=== PATIENT | female | born 1945 | race Caucasian/White ===

== ENCOUNTER → 2021-02-22 | Outpatient (CLI) | payer MEDICARE ==
[2021-02-22 19:50] LABS: Alanine Aminotransfer (ALT/SGP 58 U/L (12-78); Albumin, Blood 3.6 g/dL (3.4-5.0); Alk Phos 107 U/L (50-136); Anion Gap 8 mmol/L (6-16); Aspartate Aminotrans (AST/SGOT 25 U/L (12-37); Bilirubin, Total 0.7 mg/dL (0.1-1.0); Blood Urea Nitrogen 16 mg/dL (8-24); Bun/Creatinine Ratio 26.8 (12.0-20.0); CO2, Blood 23 mmol/L (21-32); Calcium, Blood 9.6 mg/dL (8.5-10.1); Chloride, Blood 108 mmol/L (98-108); Globulin, Blood 3.7 g/dL (2.2-4.0); Glomerular Filtration Rate >60 (60-); Glucose, Blood 184 mg/dL (70-99); Sodium, Blood 139 mmol/L (136-145); Total Protein, Blood 7.3 g/dL (6.4-8.2)
== END | disposition home or self-care (01) ==
LOC: LAB 15:16 → LAB SHORT 15:16
PROVIDERS: Family Medicine
DX: E11.9 Type 2 diabetes mellitus without complications (principal)
CPT/HCPCS: 80053; 83036

== ENCOUNTER 2021-11-25 08:06 | Day surgery (SDC) | payer MEDICARE ==
[~2021-11-25] VITALS: Ht 170.2 cm; Wt 84.5 kg
[~2021-11-25 08:06] MED LIST: ATOR20 PO; GLIM2 PO; GLUCOPHAGE1000 M1 PO
--- NOTE | 2021-11-25 08:58 | NUR ---
11/25/21 0858 Jacqueline Denis @ [phone], XIOMARA @ [phone]
== END 2021-11-25 10:11 | disposition home or self-care (01) ==
LOC: ORSCSDS 08:06
PROVIDERS: Ophthalmology
PROC: 08RK3JZ Replacement of Left Lens with Synthetic Substitute, Percutaneous Approach (ICD-10-PCS; principal; 2021-11-25 09:30)
DX: H25.12 Age-related nuclear cataract, left eye (principal); E11.9 Type 2 diabetes mellitus without complications; Z79.84 Long term (current) use of oral hypoglycemic drugs; Z79.899 Other long term (current) drug therapy
CPT/HCPCS: 82947; J2001; J2250; J3010; J3301; J7040; V2632

== ENCOUNTER → 2021-12-13 | Outpatient (CLI) | payer MEDICARE | LOC: LAB 11:44 → LAB SHORT 11:44 | DX: N39.0 Urinary tract infection, site not specified (principal) | CPT/HCPCS: 87077; 87086; 87186 ==

== ENCOUNTER 2022-05-05 15:29 | Inpatient (IN) | payer MEDICARE ==
[~2022-05-05] VITALS: Ht 162.6 cm; Wt 80.8 kg
[2022-05-05 16:22] LABS: BASOPHILS ABSOLUTE AUTO 0.05 K/mm3 (0.00-0.23); BASOPHILS PERCENT AUTO 0 % (0-2); EOSINOPHILS ABSOLUTE AUTO 0.11 K/mm3 (0.00-0.68); EOSINOPHILS PERCENT AUTO 1 % (0-6); Hematocrit 40.1 % (33.0-51.0); Hemoglobin 13.3 g/dL (11.5-16.0); IMMATURE GRAN ABSOLUTE AUTO 0.07 K/mm3 (0.00-0.10); IMMATURE GRAN PERCENT AUTO 1 % (0-1); LYMPHOCYTES ABSOLUTE AUTO 1.77 K/mm3 (0.84-5.20); LYMPHOCYTES PERCENT AUTO 16 % (21-46); MONOCYTES ABSOLUTE AUTO 0.91 K/mm3 (0.16-1.47); MONOCYTES PERCENT AUTO 8 % (4-13); Mean Corpuscular HGB 28.6 pg (26.0-34.0); Mean Corpuscular HGB Conc 33.2 g/dL (31.5-36.5); Mean Corpuscular Volume 86 fL (80-100); Mean Platelet Volume 11.3 fL (9.1-12.4); NEUTROPHILS ABSOLUTE AUTO 8.46 K/mm3 (1.96-9.15); NEUTROPHILS PERCENT AUTO 74 % (41-73); Platelet Count 311 K/mm3 (150-400); RDW Coefficient Variation 13.9 % (11.7-14.2); RDW Standard Deviation 43.8 fL (35.1-46.3); Red Blood Cell Count 4.65 M/mm3 (3.80-5.20); White Blood Cell Count 11.37 K/mm3 (4.00-11.30)
[2022-05-05 16:55] LABS: Albumin, Blood 3.4 g/dL (3.4-5.0); Albumin/Globulin Ratio 1.1 (0.8-1.8); Bilirubin, Total 1.1 mg/dL (0.1-1.0); Bun/Creatinine Ratio 44.7 (12.0-20.0); Calcium, Blood 9.4 mg/dL (8.5-10.1); Creatinine, Blood 0.56 mg/dL (0.40-1.00); Globulin, Blood 3.2 g/dL (2.2-4.0); Total Protein, Blood 6.6 g/dL (6.4-8.2)
[2022-05-06 06:19] LABS: Bun/Creatinine Ratio 42.8 (12.0-20.0); Calcium, Blood 9.5 mg/dL (8.5-10.1); Creatinine, Blood 0.58 mg/dL (0.40-1.00); Potassium, Blood 3.7 mmol/L (3.5-5.5)
--- NOTE | 2022-05-06 18:07 | NUR ---
PT DENIES SOB , UP TO COMMODE WITH STANDBY ASSIST TO VOID CLEAR YELLOW URINE. MONITOR SHOWS SINUS TACH.SPOKE WITH DR RIVERA REGARDING RASH UNDER LEFT BREAST AND NEW ORDERS RTECEIVED
[2022-05-07 05:37] LABS: Bun/Creatinine Ratio 33.1 (12.0-20.0); Calcium, Blood 9.5 mg/dL (8.5-10.1); Creatinine, Blood 0.76 mg/dL (0.40-1.00)
--- NOTE | 2022-05-07 07:40 | NUR ---
SHIFT SUMMARY S/P SOB, PT FEELING BETTER BUT STILL A LITTLE SOB WHEN SHE IS GETTING UP, SOME ST ELEVATION REPORTED FROM TELEMETRY BUT WAS RESOVED AFTER ADJUSTING LEAD PLACEMENT IN PROPER LOCATIONS THE LEFT ARM AND LEG LEADS WERE REVERSED. NO ACUTE EVENTS THIS SHIFT, CALL LIGHT IN REACH, REPORT GIVEN TO DAY RN.
--- NOTE | 2022-05-07 12:10 | NUR ---
07- [facility] REPORT FROM PREVIOUS SHIFT RN, PT SLEEPING IN BED, BED IN LOWEST POSITION, BED RAILS UP X 2, CALL LIGHT WITHIN REACH 1000-FOLLOWING DIURETIC ADMINISTRATION PER JUL, PT UP TO COMMODE SEVERAL TIMES WITH ASSISTANCE. PT FORGETFUL TO CALL STAFF, BED ALARM IN PLACE
--- NOTE | 2022-05-07 12:40 | NUR ---
7475- DR MONTERO ROUNDING ON SAULO
--- NOTE | 2022-05-08 06:11 | NUR ---
SHIFT SUMMARY NO ACUTE CHANGES TO REPORT THIS SHIFT, PT HAS BEEN DIURESING WITH LASIKS, PT HAS BEEN VOIDING, INDEPENDENT TO THE BSC. A/OX3 WITH SOME MILD CONFUSION. VITALS ARE STABLE, ASSESSMENT REMAINS UNCHANGED. BED IN LOWEST POSITION, CALL LIGHT WITHIN REACH.
[2022-05-08 06:45] LABS: Albumin, Blood 2.9 g/dL (3.4-5.0); Anion Gap 8 mmol/L (6-16); Blood Urea Nitrogen 23 mg/dL (8-24); Bun/Creatinine Ratio 29.7 (12.0-20.0); CO2, Blood 32 mmol/L (21-32); Calcium, Blood 9.4 mg/dL (8.5-10.1); Chloride, Blood 101 mmol/L (98-108); Creatinine, Blood 0.78 mg/dL (0.40-1.00); Glomerular Filtration Rate 80 (60-); Glucose, Blood 126 mg/dL (70-99); Phosphorus, Blood 4.4 mg/dL (2.5-4.9); Potassium, Blood 3.1 mmol/L (3.5-5.5); Sodium, Blood 141 mmol/L (136-145)
--- NOTE | 2022-05-08 17:10 | NUR ---
SHORTNESS OF BREATH PT REPORTED INCREASED SHORTNESS OF BREATH. SHE STATES IT STARTED AFTER EATING A SANDWICH EARLIER TODAY. PT ALSO COMPLAINED OF MID TO UPPER L SIDED BACK PAIN. PT HAS CHRONIC BACK PAIN AND SHE STATES THAT THIS PAIN IS USUALLY MANAGED WITH REPOSITIONING AND TYLENOL. REPOSITIONING AND TYLENOL HAVE NOT BEEN SUCCESSFUL AT RELIEVING PAIN THIS AFTERNOON. DR. MONTERO NOTIFIED. EKG AND ORDERED AND COMPLETED. WAITING FOR TROPONIN BLOOD DRAW.
--- NOTE | 2022-05-08 17:54 | NUR ---
EKG COMPLETED DR. MONTERO NOTIFIED EKG APPEARS DIFFERENT FROM PREVIOUS EKG BUT READ OUT DOES NOT STATE ST ELEVATION. PER DR. WINSTON ORO WILL COME LOOK AT THE EKG. AWAITING TROPONING. PT'S BP LOW AT 97/67, DR. MONTERO NOTIFIED AND WOULD LIKE TO CONTINUE WITH PLAN TO ADMINISTER LASIX THIS EVENING.
--- NOTE | 2022-05-08 18:00 | NUR ---
PREETHI CROWE ROUNDED ON PT. HE STATED HE DOES NOT FEEL THERE IS ST ELEVATION SHOWN ON THE PT'S EKG. HE WAS NOTIFIED OF MID/UPPER L BACK PAIN THAT IS UNRESOLVED. PT HIS ALSO MORE FORGETFUL/CONFUSED THIS EVENING. BED ALARM IN PLACE, PT IS STILL USING HER CALL LIGHT APPROPRIATELY.
--- NOTE | 2022-05-08 18:56 | NUR ---
SOFT BLOOD PRESSURE PT'S BP HAS BEEN SOFT THIS EVENING. AT 1833 PRIOR TO LASIX ADMINISTRATION BP WAS CHECK AND WAS 79/60 MAP OF 66 AND HR OF 109 WHILE HOB WAS ELEVATED. PT DENIED DIZZINESS AND REPORTS SHE NO LONGER FEELS SOB. PT WAS ASSISTED TO LAY FLAT BP RECHECKED AND WAS 101/63 WITH MAP OF 76 AND HR OF 110. PREETHI CROWE NOTIFIED AND STATED OK TO CONTINUE WITH LASIX ADMINISTRATION. PT PROVIDED EDUCATION AND LASIX WAS GIVEN. PT ENCOURAGED TO CALL FOR ASSISTANCE WHEN GETTING TO THE BSC.
[2022-05-09 04:43] LABS: BASOPHILS ABSOLUTE AUTO 0.07 K/mm3 (0.00-0.23); BASOPHILS PERCENT AUTO 1 % (0-2); EOSINOPHILS ABSOLUTE AUTO 0.33 K/mm3 (0.00-0.68); EOSINOPHILS PERCENT AUTO 3 % (0-6); Hematocrit 43.6 % (33.0-51.0); Hemoglobin 13.8 g/dL (11.5-16.0); IMMATURE GRAN ABSOLUTE AUTO 0.03 K/mm3 (0.00-0.10); IMMATURE GRAN PERCENT AUTO 0 % (0-1); LYMPHOCYTES ABSOLUTE AUTO 3.57 K/mm3 (0.84-5.20); LYMPHOCYTES PERCENT AUTO 35 % (21-46); MONOCYTES ABSOLUTE AUTO 1.08 K/mm3 (0.16-1.47); MONOCYTES PERCENT AUTO 11 % (4-13); Mean Corpuscular HGB 27.5 pg (26.0-34.0); Mean Corpuscular HGB Conc 31.7 g/dL (31.5-36.5); Mean Corpuscular Volume 87 fL (80-100); Mean Platelet Volume 11.5 fL (9.1-12.4); NEUTROPHILS ABSOLUTE AUTO 5.21 K/mm3 (1.96-9.15); NEUTROPHILS PERCENT AUTO 51 % (41-73); Platelet Count 333 K/mm3 (150-400); RDW Coefficient Variation 13.9 % (11.7-14.2); RDW Standard Deviation 43.8 fL (35.1-46.3); Red Blood Cell Count 5.01 M/mm3 (3.80-5.20); White Blood Cell Count 10.29 K/mm3 (4.00-11.30)
[2022-05-09 05:10] LABS: Albumin, Blood 3.2 g/dL (3.4-5.0); Anion Gap 8 mmol/L (6-16); Blood Urea Nitrogen 23 mg/dL (8-24); Bun/Creatinine Ratio 31.2 (12.0-20.0); CHOL/HDL RATIO 2.8; CO2, Blood 31 mmol/L (21-32); Calcium, Blood 9.8 mg/dL (8.5-10.1); Chloride, Blood 100 mmol/L (98-108); Cholesterol 142 mg/dL (50-200); Creatinine, Blood 0.74 mg/dL (0.40-1.00); Glomerular Filtration Rate 85 (60-); Glucose, Blood 178 mg/dL (70-99); HDL Cholesterol 50 mg/dL (>39); LDL/HDL RATIO 1.4; Low Density Lipoprotein Chol 72 mg/dL (0-110); Phosphorus, Blood 4.5 mg/dL (2.5-4.9); Potassium, Blood 3.6 mmol/L (3.5-5.5); Sodium, Blood 139 mmol/L (136-145); Triglycerides 100 mg/dL (30-160); Very Low Density Lipoprot Chol 20 mg/dL (6-32)
--- NOTE | 2022-05-09 05:19 | NUR ---
SHIFT SUMMARY PT A&OX4, PLEASANT AND COOPERATIVE WITH CARE. MEDICATED FOR PAIN ONCE WITH TYLENOL FOR BACK PAIN. PT CAN AMBULATED INDEPENDENTLY, BUT WITH THE SOFT BP'S HAS BEEN ASKED TO USE THE CALL BUTTON WHEN NEEDING TO VOID. BED ALARM HAS BEEN ON THE PT DOESN'T ALWAYS CALL. TOLERATING PO INTAKE. CALL LIGHT WITHIN REACH.
--- NOTE | 2022-05-09 09:05 | NUR ---
STRESS TEST BP DIPPED TO 83/62, NURSE NOTIFED DR RAMIREZ, 250 NS BOLUS ORDER OBTAINED AND INITIATED. PATIENT LYIING SUPINE. RECHECK 98/69, LUNG SOUNDS CLEAR, DENIES CHEST PAIN, SOB. HR 98.
--- NOTE | 2022-05-09 18:35 | NUR ---
SHIFT SUMMRY PATIENT ADMITTED FOR CHESPT PAIN. STRESS DONE TODAY, DR. RAMIRZE TO ROOM THIS EVENING TO DISCUSS RESULTS AND PLANS MADE TO HAVE ECHOCARDIOGRAM IN THE AM. ALL CONSENTS SIGNED. PATIENT BP SOFT THIS AM AND T/O EARLY AFTERNOON METOPROLOL HELD, WAS ALDACTONE. BP UP TO 100S/70'S THIS AFTERNOON. PATIENT TOLERATES PO INTAKE AND VOIDS FREQUENTLY IN BSC. PATIENT REPORTS BACK PAIN AND MEDICATED PER EMAR. ALBLE TO REST FOR ABOUT AN HOUR AND REPORTED RELIEF.VSS, PATIENT TO BE NPO AT MIDNIGHT FOR DIET AIDE IN AM. WILL REPORT TO NIGHT RN.
--- NOTE | 2022-05-10 05:02 | NUR ---
SHIFT SUMMARY PT A&0X4, PLEASANT AND COOPERATIVE WITH CARE. PT DID NOT NEED PAIN COVERAGE THIS SHIFT. PT CAN AMBULATE INDEPENDENTLY, BUT ASKED TO USE CALL BUTTON FOR SBA TO VOID WITH THEIR LOWER BP'S. NPO SINCE 0000 FOR GIN OPERATOR IN AM. PT RESTED MAJORITY OF SHIFT. CALLS APPROPRIATELY, CALL LIGHT WITHIN REACH.
[2022-05-10 06:12] LABS: Albumin, Blood 3.3 g/dL (3.4-5.0); Anion Gap 10 mmol/L (6-16); Blood Urea Nitrogen 23 mg/dL (8-24); Bun/Creatinine Ratio 33.9 (12.0-20.0); CO2, Blood 27 mmol/L (21-32); Calcium, Blood 10.1 mg/dL (8.5-10.1); Chloride, Blood 101 mmol/L (98-108); Creatinine, Blood 0.68 mg/dL (0.40-1.00); Glomerular Filtration Rate 91 (60-); Glucose, Blood 159 mg/dL (70-99); Magnesium, Blood 2.2 mg/dL (1.6-2.4); Potassium, Blood 3.7 mmol/L (3.5-5.5); Sodium, Blood 138 mmol/L (136-145)
--- NOTE | 2022-05-10 15:53 | NUR ---
GAVE REPORT TO THE PCU NURSE THAT WILL BE TAKING HER. SHE HAD NO OTHER QUESTIONS AT THIS TIME. PATIENT HAD HER PERSONAL ITEMS GATHERED IN BAGS AND SHE WAS PLACED IN A WHEELCHAIR TO BE TAKEN TO HER NEW ROOM PCU 16. PATIENT TRANSFERRED INDEP. FROM THE WHEELCHAIR TO HER NEW BED. CALL LIGHT WITHIN REACH.
--- NOTE | 2022-05-10 16:08 | NUR ---
ASSUMPTION OF CARE: PT TRANSFERS TO PCU, ARRIVING VIA W/C. PT TRANSFERS SELF TO BED, WARM BLANKETS AND EXTRA PILLOW PROVIDED. PLAN OF CARE DISCUSSED W/PT. PT IS A&Ox4, DENIES SOB/CP, O2 SATS >93% RA, SR ON MONITOR W/RATE 90s. PT CONTINUES NPO, POSSIBLE ANGIO TODAY, AWAITING UPDATE ON PLAN/TIMEFRAME. PT PROVIDED W/CALL BUTTON, DENIES FURTHER NEEDS AT THIS TIME, WILL CONTINUE TO MONITOR AND TREAT ACCORDINGLY.
--- NOTE | 2022-05-10 16:39 | NUR ---
PT TO WELL BLOWER FOR ANGIOGRAM.
--- NOTE | 2022-05-10 18:41 | NUR ---
PT CONTINUES IN MATERIAL HAULER
--- NOTE | 2022-05-11 03:34 | NUR ---
ASSUMPTION OF CARE/UPDATE PT ARRIVED FROM PAPER PATTERN FOLDER AT 1900. PT A&Ox3, DID NOT KNOW SHE WAS AT [facility] AND ASKED IF WE COULD CALL THE AMBULANCE BECAUSE SHE FELT LIKE SHE COULDN'T BREATH. PT EASILY REORIENTED AND COUCHED PT THROUGH TAKING SLOW, CONTROLLED DEEP BREATHS, SpO2 98% RA. PT CONTINUEING TO FEEL ANXIOUS AND PANICKED STATING THAT SHE COULDN'T BREATH AND THAT SHE FELT LIKE SHE WAS GOING TO . SpO2 REMAINED >92% THE ENTIRE TIME, HR REMAINED SINUS 90's, BP STABLE, AND PT DENIED CP/PRESSURE, SHOULDER PAIN, JAW PAIN, BACK PAIN, AND ABDOMINAL PAIN. PLACE PT ON 2L O2 VIA NC TO HELP EASE HER SOB. PT HAS EQUAL STRENGTH IS ALL EXTREMITIES. PUPILS ARE EQUAL, ROUND, AND REACTIVE TO LIGHT. PT SPEECH IS SLOW TO RESPOND AND CONFUSED. THIS IS NOT SUCCESSFUL. THIS RN, AN ADDITIONAL RN, AND FACTORY LABORER AT BEDSIDE. CALL TO PHYSCIAN, ORDERS PLACE FOR ATIVAN AND VISTARIL. ADMINISTERED ATIVAN AT 2111, IT WAS NOT AFFECTIVE. ADMINISTERED VISTARIL AT 2228, THIS WAS ALSO NOT AFFECTIVE. PT BECOMING INCREASINGLY CONFUSED AND AGITATED, PULLING TELE AND GOWN OFF, TRYING TO PULL OUT IV, AND NOT FOLLOWING DIRECTIONS TO NOT USE RIGHT WRIST D/T R RADIAL ACCESS SITE. PT ALSO STARTING TO SWAT AT STAFF AND TRYING TO GET OUT OF BED. PT IS UNABLE TO REORIENT. CALL TO PHSYCIAN, ORDERS PLACE FOR IM ZYPREXA AND NON-VIOLENT RESTRAINTS. IM ZYPREXA ADMINISTERED AT 2336 AND BILATERAL SOFT WRIST RESTRAINTS AND ELI VEST APPLIED. PT STILL TRYING TO REMOVE TELE/VEST AND FIDGETING WITH WHAT [facility] CAN REACH. ZYPREXA HELPED CALM PT DOWN. AT APPROXIMATELY 0140 PT HR BEGAN SUSTAINING IN SINUS 120-130 WITH A SMALLER QRS, EKG PERFORMED AND COLLAR FOLDER OPERATOR NOTIFIED, ORDERS FOR PRN IV METOPROLOL PLACE. ONCE PT STARTED TO RELAX, HR RETURNED TO LOW 100's. CALL TO PHYSICIAN REGAURDING PT's NUEROLOGICAL STATUS AND REQUESTED THAT [facility]YCIAN COME ASSESS PT. PT AT BEDSIDE, DISCUSSED CONCERNS OF PT's INCREASING CONFUSION, HER COLOR IS VERY PALE/JAY, AND APPEARING INCREASINGLY MORE ILL. ALSO INFORMED PHSYCIAN THAT THERE WERE NO MORNING LABS ORDERED. NO NEW ORDERS PLACE AFTER PHSYCIAN ASSESSED PT.
--- NOTE | 2022-05-11 04:22 | NUR ---
R RADIAL SITE RECOVERY PT ARRIVED FROM GRINDING WHEEL FACER AT APPROXIMATELY 1900 WITH 11mls OF AIR IN TR BAND. ASSESS SITE WITH EAT CENTER NURSES. SITE C/D/I, NO BLEEDING, SWELLING, HEMATOMA. PT HAS SENSATION AND ABLE TO MOVE ALL FINGERS, CONTINUOUS SpO2 MONITOR PLACED ON INDEX FINGER READING SpO2> 92%. ARM BOARD IN PLACE. REINFORCED IMPORTANCE OF NOT USING RIGHT HAND/WRIST TO PT. 0000: 2mls OF AIR REMOVED FROM TR BAND. SITE C/D/I, NO BLEEDING, SWELLING, HEMATOMA. PT HAS SENSATION AND ABLE TO MOVE ALL FINGERS, CONTINUOUS SpO2 MONITOR ON INDEX FINGER READING SpO2> 92%. ARM BOARD IN PLACE. REINFORCED IMPORTANCE OF NOT USING RIGHT HAND/WRIST TO PT. 0020: 2mls OF AIR REMOVED FROM TR BAND. SITE C/D/I, NO BLEEDING, SWELLING, HEMATOMA. PT HAS SENSATION AND ABLE TO MOVE ALL FINGERS, CONTINUOUS SpO2 MONITOR ON INDEX FINGER READING SpO2> 92%. ARM BOARD IN PLACE. REINFORCED IMPORTANCE OF NOT USING RIGHT HAND/WRIST TO PT. 0040: 2mls OF AIR REMOVED FROM TR BAND. SITE C/D/I, NO BLEEDING, SWELLING, HEMATOMA. PT HAS SENSATION AND ABLE TO MOVE ALL FINGERS, CONTINUOUS SpO2 MONITOR ON INDEX FINGER READING SpO2> 92%. ARM BOARD IN PLACE. REINFORCED IMPORTANCE OF NOT USING RIGHT HAND/WRIST TO PT. 0055: 2mls OF AIR REMOVED FROM TR BAND. SITE C/D/I, NO BLEEDING, SWELLING, HEMATOMA. PT HAS SENSATION AND ABLE TO MOVE ALL FINGERS, CONTINUOUS SpO2 MONITOR ON INDEX FINGER READING SpO2> 92%. ARM BOARD IN PLACE. REINFORCED IMPORTANCE OF NOT USING RIGHT HAND/WRIST TO PT. 0105: 2mls OF AIR REMOVED, TR BAND IS NOW EMPTY AFTER A TOTAL OF 10mls OF AIR WAS REMOVED. SITE C/D/I, NO BLEEDING, SWELLING, HEMATOMA. PT HAS SENSATION AND ABLE TO MOVE ALL FINGERS, CONTINUOUS SpO2 MONITOR ON INDEX FINGER READING SpO2> 92%. TR BAND AND ARM BOARD IN PLACE.REINFORCED IMPORTANCE OF NOT USING RIGHT HAND/WRIST TO PT. REMOVED EMPTY TR BAND AT 0215, CLEANED SITE WITH CHLORHEXIDINE AND PLACED CLEAR TEGADERM DRESSING OVER SITE. SITE C/D/I, NO BLEEDING, SWELLING, HEMATOMA. PT HAS SENSATION AND ABLE TO MOVE ALL FINGERS, CONTINUOUS MONITOR ON INDEX FINGER SpO2 READING SpO2> 92%. ARM BOARD IN PLACE. REINFORCED IMPORTANCE OF NOT USING RIGHT HAND/WRIST TO PT.
--- NOTE | 2022-05-11 05:47 | NUR ---
SHIFT SUMMARY SEE PREVIOUS NOTES. SINCE APPROXIMATELY 0330 PT HAS BEEN LESS AGITATED AND IS STARTING REST MORE PEACFULLY. PT OCCATIONALLY WAKES UP AND FIDGETING WITH GOWN/ELI VEST AND TRYING TO MESS WITH LINES. VSS, SpO2> 92% RA, NOW DENYING SOB. BP STABLE, SINUS 100-120's, DENIES CP/PRESSURE. R RADIAL SITE C/D/I, WNL, NO BLEEDING, SWELLING, HEMATOMA, ARM BOARD IN PLACE. PUPILS EQUAL, ROUND, REACTIVE TO LIGHT. BIALTERAL SOFT WRIST RESTRAINTS AND ELI VEST ON. NO OTHER EVENTS, WILL REPORT TO ONCOMING RN.
[2022-05-11 07:03] LABS: BASOPHILS ABSOLUTE AUTO 0.03 K/mm3 (0.00-0.23); BASOPHILS PERCENT AUTO 0 % (0-2); EOSINOPHILS PERCENT AUTO 0 % (0-6); Hematocrit 41.9 % (33.0-51.0); Hemoglobin 13.4 g/dL (11.5-16.0); IMMATURE GRAN ABSOLUTE AUTO 0.11 K/mm3 (0.00-0.10); IMMATURE GRAN PERCENT AUTO 1 % (0-1); LYMPHOCYTES ABSOLUTE AUTO 0.93 K/mm3 (0.84-5.20); LYMPHOCYTES PERCENT AUTO 5 % (21-46); MONOCYTES ABSOLUTE AUTO 1.05 K/mm3 (0.16-1.47); MONOCYTES PERCENT AUTO 6 % (4-13); Mean Corpuscular HGB 28.6 pg (26.0-34.0); Mean Corpuscular Volume 89 fL (80-100); Mean Platelet Volume 11.4 fL (9.1-12.4); NEUTROPHILS ABSOLUTE AUTO 15.95 K/mm3 (1.96-9.15); NEUTROPHILS PERCENT AUTO 88 % (41-73); Platelet Count 340 K/mm3 (150-400); RDW Coefficient Variation 13.9 % (11.7-14.2); RDW Standard Deviation 44.6 fL (35.1-46.3); Red Blood Cell Count 4.69 M/mm3 (3.80-5.20); White Blood Cell Count 18.07 K/mm3 (4.00-11.30)
[2022-05-11 07:21] LABS: Bun/Creatinine Ratio 36.6 (12.0-20.0); Calcium, Blood 9.5 mg/dL (8.5-10.1); Creatinine, Blood 0.71 mg/dL (0.40-1.00); Potassium, Blood 4.7 mmol/L (3.5-5.5)
--- NOTE | 2022-05-11 18:15 | NUR ---
AT THE BEGINING OF THE SHIFT, PT WAS CONFUSED, AGITATED. SHE WENT FOR HEAD CT WHICH WAS NEGATIVE. PT'S MENTATION SLOWLY IMPROVED AROUND NOON TODAY, AND RESTRAINTS WERE ABLE TO BE REMOVED AT 1400 TODAY PT WAS ALERT, ORIENTED TO SELF, SURROUNDINGS, FAMILY, AND WAS ABLE TO ACCURATELY REPEAT BACK EDUCATION ABOUT CALL LIGHT USE. AT 1400 PT WAS ABLE TO EAT AND DRINK AND PROTECT AIRWAY. VSS. SPOUSE AT BEDSIDE. AT THE TIME OF THIS NOTE, PT IS SLEEPING SOUNDLY, PT WAS NOT WOKEN TO GIVE MELATONIN. RT RADIAL SITE REMAINS FREE OF BLEEDING OR HEMATOMA, ARM BOAR IN PLACE, STRONG PULSES NOTED TO RADIAL BILAT
[2022-05-12 04:25] LABS: BASOPHILS ABSOLUTE AUTO 0.05 K/mm3 (0.00-0.23); BASOPHILS PERCENT AUTO 0 % (0-2); EOSINOPHILS ABSOLUTE AUTO 0.21 K/mm3 (0.00-0.68); EOSINOPHILS PERCENT AUTO 2 % (0-6); Hematocrit 37.2 % (33.0-51.0); IMMATURE GRAN ABSOLUTE AUTO 0.03 K/mm3 (0.00-0.10); IMMATURE GRAN PERCENT AUTO 0 % (0-1); LYMPHOCYTES ABSOLUTE AUTO 2.48 K/mm3 (0.84-5.20); LYMPHOCYTES PERCENT AUTO 22 % (21-46); MONOCYTES ABSOLUTE AUTO 1.28 K/mm3 (0.16-1.47); MONOCYTES PERCENT AUTO 11 % (4-13); Mean Corpuscular HGB 28.2 pg (26.0-34.0); Mean Corpuscular HGB Conc 32.3 g/dL (31.5-36.5); Mean Corpuscular Volume 88 fL (80-100); Mean Platelet Volume 11.3 fL (9.1-12.4); NEUTROPHILS ABSOLUTE AUTO 7.32 K/mm3 (1.96-9.15); NEUTROPHILS PERCENT AUTO 64 % (41-73); Platelet Count 300 K/mm3 (150-400); RDW Standard Deviation 44.7 fL (35.1-46.3); Red Blood Cell Count 4.25 M/mm3 (3.80-5.20); White Blood Cell Count 11.37 K/mm3 (4.00-11.30)
--- NOTE | 2022-05-12 04:47 | NUR ---
SHIFT SUMMARY NO ACUTE CHANGES THIS SHIFT. VSS. ALERT, NOT ALWAYS ORIENTED BUT DIRECTABLE. VSS. R RADIAL ACCESS SITE W/OUT HEMATOMA. SKIN UNDER OPSITE CLEAN AND DRY. NONTENDER. PT DENYING CP/PRESSURE. ON RA. REPOSITIONING SELF, HAS BEEN UP TO BSC MULTIPLE TIMES THIS SHIFT W/O INCIDENT. REMAINS OUT OF RESTRAINTS. PT SLEEPING OFF AND ON THIS SHIFT. LOADED ON PLAVIX DUE TO NOT HAVING BRILLINTA DUE TO PATIENTS PEVIOUS SEVERE ALTERED MENTAL STATUS. OTHERWISE, BED ALARM IN PLACE.
[2022-05-12 04:55] LABS: Albumin, Blood 2.9 g/dL (3.4-5.0); Anion Gap 16 mmol/L (6-16); Blood Urea Nitrogen 28 mg/dL (8-24); Bun/Creatinine Ratio 36.2 (12.0-20.0); CO2, Blood 19 mmol/L (21-32); Calcium, Blood 8.9 mg/dL (8.5-10.1); Chloride, Blood 104 mmol/L (98-108); Creatinine, Blood 0.77 mg/dL (0.40-1.00); Glomerular Filtration Rate 81 (60-); Glucose, Blood 147 mg/dL (70-99); Magnesium, Blood 2.2 mg/dL (1.6-2.4); Phosphorus, Blood 3.2 mg/dL (2.5-4.9); Potassium, Blood 4.3 mmol/L (3.5-5.5); Sodium, Blood 139 mmol/L (136-145)
[2022-05-12] MEDS ORDERED: ASPI81CH PO (09:54)
[2022-05-12] MEDS ORDERED: CLOP75 PO (09:55)
[2022-05-12] MEDS ORDERED: JARDIANCE25 MG PO (09:56)
[2022-05-12] MEDS ORDERED: MELATONIN5 M1 PO (09:57)
[2022-05-12] MEDS ORDERED: METO25ER PO (09:57)
[2022-05-12] MEDS ORDERED: KLOR-CON M1010 MEQ PO (09:58)
[2022-05-12] MEDS ORDERED: SPIR25 PO (09:59)
[2022-05-12] MEDS ORDERED: FURO20 PO (10:00)
--- NOTE | 2022-05-12 18:44 | NUR ---
END OF SHIFT NOTE PT A&O X3. VSS. SPO2 > 92% ON RA. MONITOR SHOWING SR-ST, HR 90s-110s. R RADIAL ACCESS SITE WNL W/ ARM BOARD IN PLACE. PT REQUIRING FREQUENT REMINDING NOT TO PUSH WEIGHT OFF OF R WRIST WHEN SITTING SELF UP IN BED. PT SBA OOB. DISCHARGE INSTRUCTIONS REVIEWED & SENT HOME W/ PT & PT SPOUSE. LIFE VEST PLACED BY LIFE VEST REP PRIOR TO PT DISCHARGE. PT TAKEN OUT BY PCT IN WHEELCHAIR @ APPROX 1840.
== END 2022-05-12 19:00 | disposition home or self-care (01) | DRG 246 ==
LOC: ER 15:29 → ERHOLD 18:54 → SURS 05-06 15:32 → PCU 05-06 15:50 → SURS 05-06 15:50 → PCU 05-06 15:50 → SURS 05-06 15:51 → PCU 05-10 15:55
PROVIDERS: Internal Medicine; Internal Medicine Cardiovascular Disease; Physician Assistant; ADMIT Internal Medicine
PROC: 3E02340 Introduction of Influenza Vaccine into Muscle, Percutaneous Approach (ICD-10-PCS; 2022-05-05)
PROC: 027034Z Dilation of Coronary Artery, One Artery with Drug-eluting Intraluminal Device, Percutaneous Approach (ICD-10-PCS; principal; 2022-05-10)
PROC: 02F03ZZ Fragmentation in Coronary Artery, One Artery, Percutaneous Approach (ICD-10-PCS; 2022-05-10)
PROC: B211YZZ Fluoroscopy of Multiple Coronary Arteries using Other Contrast (ICD-10-PCS; 2022-05-10)
PROC: B215YZZ Fluoroscopy of Left Heart using Other Contrast (ICD-10-PCS; 2022-05-10)
PROC: 4A033BC Measurement of Arterial Pressure, Coronary, Percutaneous Approach (ICD-10-PCS; 2022-05-10)
PROC: B24BZZ3 Ultrasonography of Heart with Aorta, Intravascular (ICD-10-PCS; 2022-05-10)
DX: I11.0 Hypertensive heart disease with heart failure (principal); G92.8 Other toxic encephalopathy; I50.41 Acute combined systolic (congestive) and diastolic (congestive) heart failure; E87.1 Hypo-osmolality and hyponatremia; Z78.1 Physical restraint status; Z23 Encounter for immunization; E11.9 Type 2 diabetes mellitus without complications; T41.45XA Adverse effect of unspecified anesthetic, initial encounter; E78.5 Hyperlipidemia, unspecified; I34.0 Nonrheumatic mitral (valve) insufficiency; E87.6 Hypokalemia; I27.20 Pulmonary hypertension, unspecified; I25.5 Ischemic cardiomyopathy; I25.10 Atherosclerotic heart disease of native coronary artery without angina pectoris; E66.9 Obesity, unspecified; Z68.32 Body mass index [BMI] 32.0-32.9, adult; Z87.891 Personal history of nicotine dependence; Z90.49 Acquired absence of other specified parts of digestive tract; Z98.890 Other specified postprocedural states; Z98.891 History of uterine scar from previous surgery; Z79.84 Long term (current) use of oral hypoglycemic drugs; Z79.899 Other long term (current) drug therapy
CPT/HCPCS: 36415; 70450; 71045; 76937; 78452; 80048; 80053; 80061; 80069; 82947; 83036; 83735; 83880; 84443; 84484; 85025; 85347; 90686; 92978; 93005; 93010; 93017; 93454; 93458; 93571; 94760; 96372-59; 96374-59; 96376-59; 99152; 99153; 99285-25; A9270; A9500; C1725; C1753; C1761; C1769; C1874; C1887; C1894; C8929; C9600; C9602; G0008; J0153; J0280; J0706; J1644; J1650; J1815; J1940; J2060; J2250; J2785; J3010; J3480; J7030; J7040; J7050; Q9957; Q9967

== ENCOUNTER 2022-06-01 15:18 | Inpatient (IN) | payer MEDICARE ==
[~2022-06-01] VITALS: Ht 170.2 cm; Wt 72.5 kg
[~2022-06-01 15:18] MED LIST changes: +ASPI81CH PO; +CLOP75 PO; +FURO20 PO; +JARDIANCE25 MG PO; +K-Dur20 MEQ PO; +MELATONIN5 M1 PO; +METO25ER PO; +SPIR25 PO
[2022-06-01 15:57] LABS: BASOPHILS ABSOLUTE AUTO 0.04 K/mm3 (0.00-0.23); BASOPHILS PERCENT AUTO 0 % (0-2); EOSINOPHILS ABSOLUTE AUTO 0.09 K/mm3 (0.00-0.68); EOSINOPHILS PERCENT AUTO 1 % (0-6); Hemoglobin 12.7 g/dL (11.5-16.0); IMMATURE GRAN PERCENT AUTO 1 % (0-1); LYMPHOCYTES ABSOLUTE AUTO 1.35 K/mm3 (0.84-5.20); LYMPHOCYTES PERCENT AUTO 12 % (21-46); MONOCYTES ABSOLUTE AUTO 0.82 K/mm3 (0.16-1.47); MONOCYTES PERCENT AUTO 7 % (4-13); Mean Corpuscular HGB 27.7 pg (26.0-34.0); Mean Corpuscular HGB Conc 33.4 g/dL (31.5-36.5); Mean Corpuscular Volume 83 fL (80-100); Mean Platelet Volume 12.2 fL (9.1-12.4); NEUTROPHILS ABSOLUTE AUTO 8.93 K/mm3 (1.96-9.15); NEUTROPHILS PERCENT AUTO 79 % (41-73); Platelet Count 314 K/mm3 (150-400); RDW Coefficient Variation 14.3 % (11.7-14.2); RDW Standard Deviation 42.5 fL (35.1-46.3); Red Blood Cell Count 4.58 M/mm3 (3.80-5.20); White Blood Cell Count 11.33 K/mm3 (4.00-11.30)
[2022-06-01 16:09] LABS: Source, Urine Straight Cath
[2022-06-01 16:10] LABS: International Normalized Ratio 1.14; Prothrombin Time Results 11.9 Sec (9.7-11.5)
[2022-06-01 16:20] LABS: Appearance, Urine Clear (Clear); Bilirubin, Urine Neg (Neg); Blood, Urine Neg (Neg); Glucose Qualitative, Urine 4+ (Neg); Ketones, Urine Neg (Neg); Leukocyte Esterase, Urine Neg (Neg); Nitrite, Urine Neg (Neg); Protein, Urine Neg (Neg); Urobilinogen, Urine NORM (Normal)
[2022-06-01 16:27] LABS: Alanine Aminotransfer (ALT/SGP 42 U/L (12-78); Albumin, Blood 3.3 g/dL (3.4-5.0); Albumin/Globulin Ratio 0.9 (0.8-1.8); Alk Phos 203 U/L (50-136); Anion Gap 13 mmol/L (6-16); Aspartate Aminotrans (AST/SGOT 22 U/L (12-37); Blood Urea Nitrogen 41 mg/dL (8-24); Bun/Creatinine Ratio 64.4 (12.0-20.0); CO2, Blood 23 mmol/L (21-32); Calcium, Blood 10.1 mg/dL (8.5-10.1); Chloride, Blood 96 mmol/L (98-108); Creatinine, Blood 0.64 mg/dL (0.40-1.00); Ethanol (Alcohol), Blood, Med <3 mg/dL; Globulin, Blood 3.8 g/dL (2.2-4.0); Glomerular Filtration Rate 93 (60-); Glucose, Blood 230 mg/dL (70-99); Potassium, Blood 3.9 mmol/L (3.5-5.5); Sodium, Blood 132 mmol/L (136-145); Total Protein, Blood 7.1 g/dL (6.4-8.2)
[2022-06-01 16:32] LABS: Color, Urine Pale Yellow (P-Yellow)
[2022-06-01 17:28] LABS: Influenza A, PCR NEGATIVE (NEGATIVE); Influenza B, PCR NEGATIVE (NEGATIVE); Resp Syncytial Virus, PCR NEGATIVE (NEGATIVE); SARS-Cov-2 (COVID-19) PCR, MMC NEGATIVE (NEGATIVE)
--- NOTE | 2022-06-02 00:56 | NUR ---
PATIENT TO ROOM FROM ER AT 2222. PATIENT IS ALERT AND ORIENTED TO SELF AND FOLLOWING COOMANDS. UNABLE TO [place], MONTH OR YEAR. COOPERATIVE WITH CARE. WALKED TO THE BED WITH MINIMAL ASSISTANCE AND A WALKER. 02 SATS 93% ON RA, DENIES SOB. HR 92 WITH LBBB, BP STABLE, DENIES CP PRESSURE. 1 PERSON ASSIST UP TO TOILET, HOWEVER PATIENT UNABLE TO MAKE IT AT TIMES AND IS INCONTINENT. PHOTOS OF LEG WOUNDS FROM FALLS AT HOME IN CHART. ATTEMPTED TO CALL PATIENTS FOR HISTORY AND MEDICATIONS BUT UNABLE TO CONTACT HIM. CALL LIGHT IN REACH
[2022-06-02 02:06] LABS: BASOPHILS ABSOLUTE AUTO 0.08 K/mm3 (0.00-0.23); BASOPHILS PERCENT AUTO 1 % (0-2); EOSINOPHILS ABSOLUTE AUTO 0.14 K/mm3 (0.00-0.68); EOSINOPHILS PERCENT AUTO 1 % (0-6); Hematocrit 39.8 % (33.0-51.0); Hemoglobin 13.2 g/dL (11.5-16.0); IMMATURE GRAN ABSOLUTE AUTO 0.06 K/mm3 (0.00-0.10); IMMATURE GRAN PERCENT AUTO 1 % (0-1); LYMPHOCYTES ABSOLUTE AUTO 1.78 K/mm3 (0.84-5.20); LYMPHOCYTES PERCENT AUTO 18 % (21-46); MONOCYTES ABSOLUTE AUTO 0.94 K/mm3 (0.16-1.47); MONOCYTES PERCENT AUTO 9 % (4-13); Mean Corpuscular HGB 27.7 pg (26.0-34.0); Mean Corpuscular HGB Conc 33.2 g/dL (31.5-36.5); Mean Corpuscular Volume 83 fL (80-100); NEUTROPHILS PERCENT AUTO 71 % (41-73); Platelet Count 269 K/mm3 (150-400); RDW Coefficient Variation 14.4 % (11.7-14.2); RDW Standard Deviation 43.1 fL (35.1-46.3); Red Blood Cell Count 4.77 M/mm3 (3.80-5.20)
[2022-06-02 02:34] LABS: Albumin, Blood 3.3 g/dL (3.4-5.0); Albumin/Globulin Ratio 0.9 (0.8-1.8); Bilirubin, Total 1.1 mg/dL (0.1-1.0); Bun/Creatinine Ratio 59.2 (12.0-20.0); Calcium, Blood 9.9 mg/dL (8.5-10.1); Creatinine, Blood 0.56 mg/dL (0.40-1.00); Globulin, Blood 3.7 g/dL (2.2-4.0); Potassium, Blood 3.1 mmol/L (3.5-5.5)
--- NOTE | 2022-06-02 04:24 | NUR ---
PATIENT WENT INTO A.FIB RVR UP TO 160s AT APPROX. 0130. MEDICATED WITH LOPRESSOR THEN DIGOXIN PER HOSPITALIST. EKG DONE AND IN CHART. REPLACED POTASSIUM AND MAGNESIUM. PATIENT REMIANS A.FIB 130s. BP STABLE. DENIES CP/PRESSURE. DENIES SOB. 02 SATS 97% ON RA. PATIENT CONTINUES TO HAVE GOOD URINE OUTPUT, INCONTINENT AT TIMES, BRIEF IN PLACE. CALL LIGHT IN REACH.
[2022-06-02 10:44] LABS: CPK Creatine Kinase 25 U/L (26-193)
--- NOTE | 2022-06-02 18:17 | NUR ---
TRANSFERRED PATIENT AT APPROXIMATELY 1800. PT ALERT AND ORIENTED, ON ROOM AIR. VS STABLE, NO ACUTE NEEDS AT TIME OF TRANSFER. ALL PT BELONGINGS TRANSFERRED WITH PATIENT. KENDALL CALLED AND UPDATED WITH NEW ROOM NUMBER.
--- NOTE | 2022-06-02 19:09 | NUR ---
TRANSFER PATIENT TRANSFERRED FROM ICU AT 1810. PATIENT SETTLED INTO ROOM. PATIENT ORIENTED TO CALL LIGHT AT TV CONTROL. PATIENT A&O X3. PATIENT HAD FAMILY AT BEDSIDE. PATIENT IS A SBA WITH A FWW. PATIENT PLEASANT AND COOPERATIVE WITH CARE.
--- NOTE | 2022-06-02 21:09 | NUR ---
PATIENT HAVING INCREASED CONFUSION. AXOX 2. PULLED HER TELEMETRY OFF AND PULLING AT LINES AND CORDS. SHE REPORTED SHE DIDN'T THINK TELEMETRY BELONGED THERE. NOT ABLE TO REORIENT AT THIS TIME. OOB ATTEMPTS. BED ALARM ACTIVATED. WCTM.
--- NOTE | 2022-06-03 02:10 | NUR ---
ALUMINUM WELDER REPORTS ST ELEVATION. REPORTS WILL CONTINUE TO MONITOR SETTING PARAMETERS TO CALL. YARN SALVAGER NOTIFIED.
--- NOTE | 2022-06-03 04:20 | NUR ---
SHIFT SUMMARY WELDER FITTER HELPER REPORTED ST ELEVATION THIS SHIFT. NSR 86 AT START OF SHIFT. AXOX 2-3 WITH CONFUSION PULLING TELEMETRY LEADS OFF X TWO AND PULLED PIV X ONE. LEADS AND PIV REPLACED. CBG 252. ON ROOM AIR. ONE ASSIST WITH FWW TO BSC. DENIES PAIN, SOB, AND N/V. VSS/AFEBRILE. AGITATED FIRST PART OF SHIFT AND CONFUSED ON/OFF T/O SHIFT. CALL LIGHT IN REACH. BED IN LOWEST POSITION AND ALARM ACTIVATED. WILL CONTINUE TO MONITOR UNTIL DAY SHIFT NURSE ASSUMES CARE.
[2022-06-03 04:50] LABS: Hemoglobin 12.2 g/dL (11.5-16.0); Mean Corpuscular HGB 27.4 pg (26.0-34.0); Mean Corpuscular Volume 83 fL (80-100); Mean Platelet Volume 11.6 fL (9.1-12.4); Platelet Count 266 K/mm3 (150-400); RDW Coefficient Variation 14.2 % (11.7-14.2); RDW Standard Deviation 42.9 fL (35.1-46.3); Red Blood Cell Count 4.45 M/mm3 (3.80-5.20); White Blood Cell Count 8.95 K/mm3 (4.00-11.30)
--- NOTE | 2022-06-03 05:03 | NUR ---
HOSPITALIST DR BURDICK NOTIFED OF ST ELEVATIONS AND REPORTS CONTINUE TO MONITOR.
[2022-06-03 05:26] LABS: Albumin, Blood 2.9 g/dL (3.4-5.0); Albumin/Globulin Ratio 0.8 (0.8-1.8); Bun/Creatinine Ratio 45.8 (12.0-20.0); Calcium, Blood 10.1 mg/dL (8.5-10.1); Creatinine, Blood 0.66 mg/dL (0.40-1.00); Globulin, Blood 3.7 g/dL (2.2-4.0); Potassium, Blood 3.8 mmol/L (3.5-5.5); Total Protein, Blood 6.6 g/dL (6.4-8.2)
--- NOTE | 2022-06-03 18:09 | NUR ---
SHIFT SUMMARY PATIENT DENIES PAIN, NAUSEA, AND SHORTNESS OF BREATH. PATIENT IS A SBA WITH A FWW. PATIENT WAS A&O 2-3 THIS SHIFT. PATIENT MORE CONFUSED IN AFTERNOON WHEN VISITED. PATIENT REPORTED CHEST PAIN. NOTIFIED. EKG DONE. VITALS WNL. PATIENT DENIES SHORTNESS OF BREATH, DESCRIBED PRESSURE THAT STARTED TO GO AWAY AFTER A COUPLE MINUTES. TELE CALLED, NO CHANGED, SR IN LOW 100'S. PATIENT IS EATING AND DRINKING WELL. PATIENT WORKED WITH PT AND OT TODAY. PATIENT IS PLEASANT AND COOPERATIVE WITH CARE.
--- NOTE | 2022-06-03 21:46 | NUR ---
PATIENT HAVING INCREASED CONFUSION. ASKING IF HER DAD IS PRESENT. OOB ATTEMPTS X 2. IMPULISVE NOT USING CALL LIGHT. REDIRECTABLE FOR SHORT TIME ONLY. BED ALARM. WCTM.
--- NOTE | 2022-06-04 04:06 | NUR ---
SHIFT SUMMARY AXOX 2 WITH INCREASED CONFUSION T/O SHIFT. WANTING TO KNOW IF HER DAD WAS HERE. MULTIPLE OOB ATTEMPTS ACTIVATING BED ALARM OR SWINGING/HANGING LEGS OVER SIDE RAILS. ONE ASSIST W/FWW TO BSC. PIV REMAINS INTACT. DIRECTOR OF OUTSIDE SALES REPORTS ST 107. CBG 311. DENIES PAIN, SOB, AND N/V. VSS/AFEBRILE. SOFT BP'S. CALL LIGHT IN REACH. BED IN LOWEST POSITION AND ALARM ACTIVATED. WILL CONTINUE TO MONITOR UNTIL DAY SHIFT NURSE ASSUMES CARE.
[2022-06-04 10:52] LABS: Hematocrit 35.9 % (33.0-51.0); Hemoglobin 12.1 g/dL (11.5-16.0); Mean Corpuscular HGB 27.4 pg (26.0-34.0); Mean Corpuscular HGB Conc 33.7 g/dL (31.5-36.5); Mean Corpuscular Volume 81 fL (80-100); Mean Platelet Volume 11.6 fL (9.1-12.4); Platelet Count 287 K/mm3 (150-400); RDW Standard Deviation 40.7 fL (35.1-46.3); Red Blood Cell Count 4.41 M/mm3 (3.80-5.20); White Blood Cell Count 9.32 K/mm3 (4.00-11.30)
[2022-06-04 11:09] LABS: Albumin, Blood 2.9 g/dL (3.4-5.0); Albumin/Globulin Ratio 0.8 (0.8-1.8); Bilirubin, Total 0.9 mg/dL (0.1-1.0); Calcium, Blood 9.7 mg/dL (8.5-10.1); Creatinine, Blood 0.57 mg/dL (0.40-1.00); Globulin, Blood 3.7 g/dL (2.2-4.0); Total Protein, Blood 6.6 g/dL (6.4-8.2)
--- NOTE | 2022-06-04 18:24 | NUR ---
SHIFT SUMMARY PT A&O X 2-3. VSS. PT FORGETFUL & EASILY CONFUSED THOUGH RE-ORIENTS WELL. PARTICIPATED WITH PT & OT TODAY. THIS AFTERNOON SHE PULLED OUT HER IV, STATES SHE FORGOT WHAT IT WAS. RE-INSERTED A NEW IV. EVENING APPROACHED PT BECAME MORE CONFUSED. APPETITE IS MARGINAL.
--- NOTE | 2022-06-05 01:31 | NUR ---
PATIENT HAD RIGHT SIDE EPISTAXIS. NOTED LOVENOX ON PER EMAR. PATIENT BLEEDING STOPPED LAST HOUR AND A HALF AFTER PINCHING NOSTRILS AND APPLYING COLD COMPRESS. HX DEMENTIA. REMINDED TO LEAVE SITE ALONE WITH MINIMAL EFFECT INITIALLY. ANATM.
--- NOTE | 2022-06-05 04:01 | NUR ---
SHIFT SUMMARY PATIENT HAD EPISTAXIS EVENT X ONE AND RESOLVED (SEE NOTE). AXO X2 WITH INCREAED CONFUSION STARTING AT NOC SHIFT CHANGE. MULTIPLE LEG SWINGING OVER BED RAILS AND PULLING ON RAILS ACTIVATING ALARM. PULLS GOWN OFF T/O SHIFT. REDIRECTABLE FOR A FEW MINUTES ONLY AT TIMES. NOT ABLE TO FOLLOW DIRECTIONS. PIV REMAINS INTACT. CLAM TREADER REPORTS [place]GREE, BBB, ST @ 107. DENIES PAIN, SOB, AND N/V. VSS/AFEBRILE. ABLE TO SLEEP LATER IN SHIFT. CALL LIGHT IN REACH. BED IN LOWEST POSITION AND ALARM ACTIVATED. WILL CONTINUE TO MONITOR UNTIL DAY SHIFT NURSE ASSUMES CARE.
[2022-06-05 05:47] LABS: Hematocrit 36.3 % (33.0-51.0); Mean Corpuscular HGB 27.1 pg (26.0-34.0); Mean Corpuscular HGB Conc 33.1 g/dL (31.5-36.5); Mean Corpuscular Volume 82 fL (80-100); NRBC ABSOLUTE 0.04 K/mm3 (0.00-0.02); NRBC Auto 0.4 /100 WBC (0.0-0.2); Platelet Count 287 K/mm3 (150-400); RDW Coefficient Variation 14.2 % (11.7-14.2); RDW Standard Deviation 41.3 fL (35.1-46.3); Red Blood Cell Count 4.43 M/mm3 (3.80-5.20); White Blood Cell Count 9.82 K/mm3 (4.00-11.30)
[2022-06-05 06:05] LABS: Bun/Creatinine Ratio 55.5 (12.0-20.0); Calcium, Blood 9.5 mg/dL (8.5-10.1); Creatinine, Blood 0.7 mg/dL (0.40-1.00); Potassium, Blood 3.5 mmol/L (3.5-5.5)
--- NOTE | 2022-06-05 13:14 | NUR ---
Pt sitting in chair eating lunch upon arrival. Pt pleasantly confused. Pt appears comfortable with no S/S of distress. Pt does not appear to eat much of her lunch. Spouse Agusto at bedside. Engaged in therapeutic listening as Agusto reports seeing a significant decline with Pt's mentation and function over the las couple of months. Agusto reports considering hospice but would like time to consider and have Pt go to SNF. He reports this will allow him to rent a place that is easier to care for Pt. He reports thinking that he does not qualify for medicaid for jail care. Once he has moved into a different rental then he will have PCP send a referral for hospice services. Continued therapeutic listening and answered questions. Palliative Care will remain available.
--- NOTE | 2022-06-05 17:45 | NUR ---
SHIFT SUMMARY PT HAD 1 EPISODE OF NOSE BLEED THIS AM, RESOLVED AFTER PRESSURE APPLIED TO BRIDGE OF NOSE. IN TO SEE PT, REQUESTED TO SPEAK TO MD. ORDERS RECEIVED FOR PALLIATIVE CARE CONSULT. (SEE NOTES) PT IS A&O X 2. VSS. IS 1 MOD ASSIST W/FWW & GB FOR RESTROOM, BSC USE & TO CHAIR AT BEDSIDE. IS INCONTINENT OF URINE. PT WEAK AND CONFUSED. IS RE-DIRECTABLE IN THE AM, HOWEVER BECOMES INCREASINGLY CONFUSED THE DAY APPROACHES AFTERNOON TOWARDS EVENING. PT HAD 2ND EPISODE OF NOSE BLEED THIS EVENING, AGAIN RESOLVED. DC'D LOVENOX. DC IS LIKELY TO SNF UPON DC FROM HOSPITAL.
--- NOTE | 2022-06-05 23:08 | NUR ---
HOSPITALIST ZULY CROWE ORDERED SEROQUEL 25 MG X ONE IN ADDITION TO SCHEDULE 25 MG DOSE. HX DEMENTIA AND INCREASE CONFUSION AND AGITATION. NO IV ACCESS ORDERED. PATIENT HAS PULLED FOUR PLUS IV'S. NOT ABLE TO ORIENT AND REDIRECT.
--- NOTE | 2022-06-06 04:06 | NUR ---
SHIFT SUMMARY PATIENT HAD NO ACUTE CHANGES. AXOX 2 WITH INCREASED CONFUSION. PULLS TELEMETRY LEADS OFF T/O SHIFT AND PULLED ANOTHER PIV OUT. MULTIPLE OOB LEGS SWINGING OVER RAILS ACTIVATING ALARM. NOT ABLE TO REORIENT OR FOLLOW DIRECTIONS AND COMMANDS. NO IV ACCESS ORDER AND ADDITIONAL DOSE OF SEROQUEL 25 MG X ONE BY HOSPITALIST ZULY CROWE. VSS/AFEBRILE. DENIES PAIN, SOB, AND N/V. SLAG EXPANDER REPORTS FIRST DEGREE, BBB, ST @111. ONE ASSIST W/FWW TO BSC. INCONTINENT. CALL LIGHT IN REACH. BED IN LOWEST POSITION WITH ALARM. WILL CONTINUE TO MONITOR UNTIL DAY SHIFT NURSE ASSUMES CARE.
[2022-06-06 05:07] LABS: Hematocrit 35.3 % (33.0-51.0); Hemoglobin 11.9 g/dL (11.5-16.0); Mean Corpuscular HGB 27.7 pg (26.0-34.0); Mean Corpuscular HGB Conc 33.7 g/dL (31.5-36.5); Mean Corpuscular Volume 82 fL (80-100); Mean Platelet Volume 12.1 fL (9.1-12.4); NRBC ABSOLUTE 0.11 K/mm3 (0.00-0.02); NRBC Auto 1.2 /100 WBC (0.0-0.2); Platelet Count 256 K/mm3 (150-400); RDW Coefficient Variation 14.2 % (11.7-14.2); RDW Standard Deviation 41.2 fL (35.1-46.3)
[2022-06-06 06:47] LABS: Albumin, Blood 2.7 g/dL (3.4-5.0); Albumin/Globulin Ratio 0.8 (0.8-1.8); Bilirubin, Total 1.1 mg/dL (0.1-1.0); Bun/Creatinine Ratio 48.6 (12.0-20.0); Creatinine, Blood 0.6 mg/dL (0.40-1.00); Globulin, Blood 3.4 g/dL (2.2-4.0); Potassium, Blood 2.9 mmol/L (3.5-5.5); Total Protein, Blood 6.1 g/dL (6.4-8.2)
--- NOTE | 2022-06-06 16:13 | NUR ---
SHIFT SUMMARY PT AxOx2 WITH FREQUENT CONFUSION. PLEASANT AND COOPERATIVE WITH CARE AND EASILY REDIRECTABLE. PATIENT IS A 1 ASSIST WITH FWW AND GB TO BSC. IN ROOM THIS SHIFT, WHO IS PATIENT'S CAREGIVER. TELE DC'D. NO IV ACCESS ORDERED. PT'S VITAL SIGNS REVIEWED. PT'S DIET WAS CHANGED FROM CARDIAC TO ADA AND CARDIAC THIS AFTERNOON. PT IS CURRENTLY RESTING IN BED WITH CALL LIGHT IN REACH. CURRENT PLAN IS SEEKING PLACEMENT FOR SHORT TERM REHAB.
--- NOTE | 2022-06-07 04:39 | NUR ---
SHIFT SUMMARY NOC PT A/O TO SELF AND SOMETIMES PLACE. VSS STABLE WITH ONE SOFTER BP READING. PT WAS INCONTINENT OF URINE X 1. NO ACUTE CHANGES. PT HAD LOW POTASSIUM AND SODIUM ON 06/06/22 OF 2.9 AND 131. AWAITING AM LAB RESULTS. PT HAS PALLIATIVE CARE CONSULT ORDERED. PT HAS BEEN RESTING ALMOST ENTIRETY OF SHIFT. PT IS CURRENTLY RESTING WITH BED ALARM ON, BED RAILS UP, BED IN LOWEST POSITION, AND CALL LIGHT WITHIN REACH.
--- NOTE | 2022-06-07 14:52 | NUR ---
PT HAD RAISED, RED ITCHY SPOT TO INTERIOR OF ELBOW ON BOTH SIDES, MORE PRONOUNCED ON R SIDE. BOTH SPOUSE IN ROOM AND THIS RN HAD NOT NOTICED EARLIER IN THE DAY. PT ENDORSES ITCHING IN THESE AREAS. DID NOT NOTICE ELSEWHERE ON BODY. PT ALSO STRUGGLING TO CATCH HER BREATH AFTER GETTING BACK TO BED. PT WAS BECOMING MORE ANXIOUS WHILE ATTEMPTING TO CATCH HER BREATH. SPOKE WITH DR. BOURGEOIS. ORDERS RECIEVED FOR XANAX TO HELP WITH ANXIETY AND TO CONTINUE MONITORING REDNESS.
--- NOTE | 2022-06-07 16:06 | NUR ---
SHIFT SUMMARY PT HAS BEEN EXTREMELY WEAK WITH AMBULATION TODAY. DIFFICULTY WITH WALKING TO RESTROOM, REQUIRED 2 PER MAX ASSIST TO GET BACK TO BED. PT AWAITING FOR CT PE STUDY. PT CONTINUES TO BREATH QUICKLY BUT IS NOT ATTEMPTING TO GET OUT OF BED AND ANXIETY IS IMPROVING PER PT. ORIENTATION REMAINS SELF AND FOLLOWING DIRECTIONS. DIFFICULT TO REDIRECT AT TIMES, NEEDS ALMOST CONSTANT PROMPTING TO USE WALKER.
--- NOTE | 2022-06-07 16:37 | NUR ---
PT OUT OF ROOM FOR IMAGING AT THIS TIME.
--- NOTE | 2022-06-07 16:52 | NUR ---
PT BACK FROM IMAGING. BED ALARM ON PT REMAINS ORIENTED X1 AND DIFFICULTY WITH COMMUNICATING.
[2022-06-07] MEDS ORDERED: TEMA15 PO (20:01)
--- NOTE | 2022-06-08 04:32 | NUR ---
SUMMARY: PT ORIENTED TO SELF AND FOLLOWING INSTRUCTION. SHE REMAINS CONFUSED TO PLACE/TIME AND REQ'S OCCASIONAL REMINDERS. BED ALARM ON FOR FALL RISK BUT PT HASN'T MADE ANY ATTEMPTS OOB BY SELF. SHE CONT'S TO BE WEAK/DECONDITIONED BUT REPOSITIONED SELF IN BED W/BOOST ASSIST PROVIDED PRN. ATTENDS CHANGED PRN FOR URINARY INCONTINENCE AND [place] [facility] [place]UFFLED UNSTEADY GAIT NOTED. SHE ALSO HAD A SIGNIFICALNT NOSE BLEED THIS SHIFT WHICH REQUIRED STAFF TO HOLD PRESSURE AND GAUZE TO BE PLACED TO STOP BLEEDING. RASH TO ARMS PERSISTS BUT WAS ALSO OBSERVED TO BILAT CALVES AND BEHIND KNEES. SHE C/O URTICARIA TO THESE AREAS W/LOTION APPLIED FOR SOME RELIEF. NO ACUTE CHANGES. BP REMAINS HYPOTENSIVE AND HR SLIGHTLY TACHYCARDIC BUT PT DENIES S/S CARDIAC DISTRESS. MILD TACHYPNEA OBSERVED AT TIMES WHICH PT CONTRIBUTES TO ANXIETY AND IT RESOLVED SPONTANEOUSLY PT CALMED. WCTM AND REPORT TO DAY RN.
[2022-06-08 05:27] LABS: BASOPHILS ABSOLUTE AUTO 0.06 K/mm3 (0.00-0.23); BASOPHILS PERCENT AUTO 1 % (0-2); EOSINOPHILS ABSOLUTE AUTO 0.34 K/mm3 (0.00-0.68); EOSINOPHILS PERCENT AUTO 3 % (0-6); Hematocrit 37.6 % (33.0-51.0); Hemoglobin 12.2 g/dL (11.5-16.0); IMMATURE GRAN ABSOLUTE AUTO 0.05 K/mm3 (0.00-0.10); IMMATURE GRAN PERCENT AUTO 1 % (0-1); LYMPHOCYTES ABSOLUTE AUTO 1.32 K/mm3 (0.84-5.20); LYMPHOCYTES PERCENT AUTO 13 % (21-46); MONOCYTES ABSOLUTE AUTO 0.76 K/mm3 (0.16-1.47); MONOCYTES PERCENT AUTO 8 % (4-13); Mean Corpuscular HGB 26.9 pg (26.0-34.0); Mean Corpuscular HGB Conc 32.4 g/dL (31.5-36.5); Mean Corpuscular Volume 83 fL (80-100); Mean Platelet Volume 11.7 fL (9.1-12.4); NEUTROPHILS ABSOLUTE AUTO 7.48 K/mm3 (1.96-9.15); NEUTROPHILS PERCENT AUTO 75 % (41-73); NRBC ABSOLUTE 0.02 K/mm3 (0.00-0.02); NRBC Auto 0.2 /100 WBC (0.0-0.2); Platelet Count 293 K/mm3 (150-400); RDW Coefficient Variation 14.6 % (11.7-14.2); RDW Standard Deviation 42.5 fL (35.1-46.3); Red Blood Cell Count 4.53 M/mm3 (3.80-5.20); White Blood Cell Count 10.01 K/mm3 (4.00-11.30)
[2022-06-08 05:54] LABS: Bun/Creatinine Ratio 46.7 (12.0-20.0); Calcium, Blood 9.3 mg/dL (8.5-10.1); Creatinine, Blood 0.6 mg/dL (0.40-1.00)
--- NOTE | 2022-06-08 12:56 | NUR ---
Brief supportive visit today. Pt needing to use commode and this RN spoke with Pt's spouse in the self. Offered therapeutic listening and answered questions. Spouse reports plan for Pt to D/C with hospice services. Discussed hospice agencies to choose from and provided choice letter. Spoke with ROSALES Martinez and relayed spouses wishes. Palliative Care will remain available.
--- NOTE | 2022-06-08 16:45 | NUR ---
SHIFT SUMMARY- PT IS ALERT, PLESANT AND COOPERATIVE. SHE IS IMPULSIVE AND TRIES TO GET OUT OF BED ON HER OWN. BED ALARM IS ON. SHE PULLED HER IV THIS SHIFT. NO IV ACCESS ORDERED. AT BEDSIDE THIS MORNING PALLATIVE CARE SAW PT AND . POSSIBLE DX TOMORROW WITH HOSPICE.
--- NOTE | 2022-06-09 07:17 | NUR ---
SHIFT SUMMARY A&O X 2-3, FORGETFUL AT TIMES. VSS. DENIES PAIN. ASSIST X 1 WITH GAIT BELT AND FWW TO BSC. PT TRIED TO HAVE A BM, HAD HARD TIME BEARING DOWN. THIS RN HAD TO DIGITALLY REMOVE STOOL FROM HER RECTALLY. PT HAD MEDIUM SEMI HARD BROWN STOOL. PT SLEPT IN BETWEEN CARE. BED ALARM ON. WILL CONTINUE TO MONITOR AND FOLLOW PLAN OF CARE.
[2022-06-09] MEDS ORDERED: ACET500 PO (12:42)
[2022-06-09] MEDS ORDERED: ALPR.5 PO (12:44)
[2022-06-09] MEDS ORDERED: BUME2 PO (12:47)
[2022-06-09] MEDS ORDERED: QUET25 PO (12:53)
--- NOTE | 2022-06-09 14:38 | NUR ---
DISCHARGE SUMMARY: PT DISCHARGED HOME WITH [facility]. 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 CALL PLACED TO HOSPICE AND GAVE REPORT TO ADMITTING RN. PT HAD IMPACTED BM THIS AM BUT WAS GIVEN A FLEET ENEMA AND PT WAS ABLE TO PASS XXLARGE BM. EDUCATED SPOUSE WHILE HE WAS PRESENT ABOUT PT CONSTIPATION AND HOW TO MANAGE. PT REPORTED FEELING MUCH BETTER. PRIOR TO DC PT DEVELOPED A BLOODY NOSE FROM R NOSTRIL. UNABLE TO STOP BLEEDING WITH PRESSURE SO ORDER FOR AFRIN OBTAINED AND AFRIN STOPPED NOSE BLEED. DISCUSSED PT EDUCATION WITH PT PRIOR TO DISCHARGE. PT VU. PT TRANSPORTED HOME VIA WHEELCHAIR TRANSPORT. BELONGINGS PACKED UP AND SENT WITH PATIENT.
== END 2022-06-09 14:03 | disposition home health service (06) | DRG 291 ==
LOC: ER 15:18 → PCU 20:13 → ICUW 20:13 → MEDS 06-02 14:54 → ICUW 06-02 14:55 → MEDS 06-02 18:25
PROVIDERS: Internal Medicine; Student in an Organized Health Care Education/Training Program; ADMIT Internal Medicine
DX: I11.0 Hypertensive heart disease with heart failure (principal); G93.41 Metabolic encephalopathy; I50.21 Acute systolic (congestive) heart failure; E87.1 Hypo-osmolality and hyponatremia; E46 Unspecified protein-calorie malnutrition; Z20.822 Contact with and (suspected) exposure to COVID-19; E11.9 Type 2 diabetes mellitus without complications; E78.5 Hyperlipidemia, unspecified; F03.90 Unspecified dementia, unspecified severity, without behavioral disturbance, psychotic disturbance, mood disturbance, and anxiety; G32.89 Other specified degenerative disorders of nervous system in diseases classified elsewhere; I44.7 Left bundle-branch block, unspecified; E87.6 Hypokalemia; I50.32 Chronic diastolic (congestive) heart failure; I27.20 Pulmonary hypertension, unspecified; Z79.02 Long term (current) use of antithrombotics/antiplatelets; Z79.82 Long term (current) use of aspirin; Z79.84 Long term (current) use of oral hypoglycemic drugs; Z79.899 Other long term (current) drug therapy
CPT/HCPCS: 0241U; 36415; 51701; 71045; 71260; 80048; 80053; 81003; 82550; 82947; 83036; 83690; 83735; 83880; 84484; 85025; 85027; 85610; 93005; 93010; 96374; 96375; 96376; 97110; 97116; 97129; 97130; 97162; 97166; 97530; 97535; 99285-25; A9270; G0378; G0480; J1160; J1650; J1815; J1940; J2405; J3475; Q9967